=== PATIENT | female | born 1990 | race Caucasian/White ===

== ENCOUNTER 2019-01-05 20:16 | Emergency (ER) | payer MEDICAID, OTHER ==
[2019-01-05 20:21] VITALS: BP 130/85
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
== END 2019-01-05 20:53 | disposition home or self-care (01) ==
LOC: ED 20:16
DX: S06.0X0A Concussion without loss of consciousness, initial encounter (principal); V59.9XXA Occupant (driver) (passenger) of pick-up truck or van injured in unspecified traffic accident, initial encounter; Y92.410 Unspecified street and highway as the place of occurrence of the external cause; F17.200 Nicotine dependence, unspecified, uncomplicated
CPT/HCPCS: 99282; 99283